=== PATIENT | female | born 1990 | race Caucasian/White ===

== ENCOUNTER → 2016-11-16 | Outpatient (CLI) | payer BC | LOC: BMCIMAGING 14:46 | PROVIDERS: ATTEND Family Medicine | DX: R11.2 Nausea with vomiting, unspecified (principal); R19.7 Diarrhea, unspecified; R10.9 Unspecified abdominal pain ==

== ENCOUNTER 2017-04-04 17:23 | Inpatient (IN) | payer MEDICAID ==
[2017-04-04] MEDS ORDERED: NS 1,000 ML IV ONE (17:36)
[2017-04-04 17:42] LABS: % IMMATURE GRANULYOCYTES 0.2 % (0.0-1.1); ABSOLUTE IMMATURE GRANULOCYTES 0.02 10^3/uL (0.00-0.10); ADD DIFF? NO; ADD MORPH? NO; ADD SCAN? NO; ATYPICAL LYMPHOCYTE FLAG 0 (0-99); FRAGMENT RBC FLAG 0 (0-99); HEMATOCRIT 37.7 % (38.0-47.0); HEMOGLOBIN 13.6 g/dL (12.6-16.3); LEFT SHIFT FLG 0 (0-99); LIPEMIA HEMOLYSIS FLAG 90 (0-99); MEAN CELL HEMOGLOBIN 34.3 pg (27.9-34.1); MEAN CELL HEMOGLOBIN CONCENTR. 36.1 g/dL (32.4-36.7); MEAN CELL VOLUME 95.2 fL (81.5-99.8); MEAN PLATELET VOLUME 9.4 fL (8.7-11.7); PLATELET CLUMPS FLAG 0 (0-99); PLATELET COUNT 240 10^3/uL (150-400); RED BLOOD CELL COUNT 3.96 10^6/uL (4.18-5.33); RED CELL DISTRIBUTION WIDTH 11.7 % (11.5-15.2)
--- NOTE | 2017-04-04 17:42 | EDPHY ---
H & P Stated Complaint: CI, not making sense Source: Patient, Police, EMS - Personal History LMP (Females 10-55): Unknown Current Tetanus/Diphtheria Vaccine: Unsure Current Tetanus Diphtheria and Acellular Pertussis (TDAP): Unsure - Medical/Surgical History Other PMH: Unable to assess pt, pt not participating in history, out of it HPI/ROS: HPI CHIEF COMPLAINT: Altered mental status, M1 hold HISTORY OF PRESENT ILLNESS: This patient is a 20-year-old female, who at this time is a Hortencia Santiago, she presents emergency room from [facility] after she was acting erratically and wandering around the up health system not making sense. Police were called. The make contact with the patient as well as EMS and she was not making sense she states that " She is in heaven" "her family is everywhere" Upon arrival here in emergency room she is noted to have normal vital signs. Review of systems and history is extremely limited due to this patient's altered mental status. Possible drug intoxication. She answers to every question random respinses. Past Medical History: Unknown Past Surgical History: Unknown Social History: Unknown Family History: Unknown ROS REVIEW OF SYSTEMS: Review systems extremely limited due the patient's mental status. Exam Constitutional triage nursing summary reviewed, vital signs reviewed, awake/ alert. Eyes normal conjunctivae and sclera, EOMI, PERRLA. HENT normal inspection, atraumatic, moist mucus membranes, no epistaxis, neck supple/ no meningismus, no raccoon eyes. Respiratory clear to auscultation bilaterally, normal breath sounds, no respiratory distress, no wheezing. Cardiovascular rate normal, regular rhythm, no murmur, no edema, distal pulses normal. Gastrointestinal soft, non-tender, no rebound, no guarding, normal bowel sounds, no distension, no pulsatile mass. Genitourinary no CVA tenderness. Musculoskeletal no midline vertebral tenderness, full range of motion, no calf swelling, no tenderness of extremities, no meningismus, good pulses, neurovascularly intact. Skin pink, warm, & dry, no rash, skin atraumatic. Neurologic moves everything appropriately, not alert and oriented, answers randomly to every question. Psychiatric normal mood/affect. Heme/Lymph/Immune no lymphadenopathy. Differential Diagnosis: Includes but is not limited to in a particular order acute drug intoxication, electrolyte disturbance, infection. Medical Decision Making: Plan for this patient IV establishment, blood draw, drug screen, alcohol level, CT of head due to altered mental status and confusion. Unclear baseline. Re-evaluation: EKG interpretation by me on record in [employer] system. Impression time of EKG 180, sinus rhythm rate of 71. Otherwise unremarkable EKG. CT scan of the head without IV contrast The results of the study are negative for acute abnormality. The study was read by Dr. Frank I viewed the images myself on the PACS system. 2148: Patient is still pending drug screen. M1 hold. Patient signed over to Dr. Leyva at 10:00 p.m. shift change. 2199: Re-evaluation at this: Patient is not speaking more coherently. However still appears altered. Drug screen pending. (Candelario Hui) Constitutional: Initial Vital Signs Temperature (C) 36.5 C 04/04/17 17:24 Heart Rate 87 04/04/17 17:24 Respiratory Rate 16 04/04/17 17:24 Blood Pressure 116/80 04/04/17 17:24 O2 Sat (%) 97 04/04/17 17:24 O2 Delivery Mode Room Air Allergies/Adverse Reactions: Unable to Assess Allergy (Unverified 04/04/17 17:28) Home Medications: Medication Instructions Recorded Unobtainable 04/04/17 Medical Decision Making ED Course/Re-evaluation: 6:00 a.m.- The patient continued to behave erratically during her time in the emergency room. She was peeing on the floor and seemed to be actively psychotic. She was given a dose of Zyprexa IM which allowed her to sleep. She will be signed out to the oncoming provider Dr. Capellan. She has been evaluated by psychiatry and we are awaiting placement for her. (Cora Leyva) I assumed care at 7:00 a.m.. The plan is to admit the patient to [address] [place] [address] this morning. (Leonora Capellan) - Data Points Laboratory Results: Laboratory Results 04/04/17 17:30 04/04/17 17:30 04/04/17 04/04/17 22:30 17:30 Urine Opiates Screen NEGATIVE (NEGATIVE) Urine Barbiturates NEGATIVE (NEGATIVE) Ur Phencyclidine Scrn NEGATIVE (NEGATIVE) Ur Amphetamine Screen NEGATIVE (NEGATIVE) U Benzodiazepines Scrn NEGATIVE (NEGATIVE) [place] < 0.2 mEq/L L mEq/L (0.6-1.2) Urine Cocaine Screen NEGATIVE (NEGATIVE) U Marijuana (THC) Screen NON-NEGATIVE H (NEGATIVE) Medications Given: Discontinued Medications Benztropine Mesylate (Cogentin) 1 mg PO EDNOW ONE Stop: 04/05/17 02:47 Last Admin: 04/05/17 04:11 Dose: Not Given Clonazepam (Klonopin) 0.5 mg PO EDNOW ONE Stop: 04/05/17 02:47 Last Admin: 04/05/17 04:11 Dose: Not Given Clozapine (Clozaril) 50 mg PO EDNOW ONE Stop: 04/05/17 02:48 Last Admin: 04/05/17 04:11 Dose: Not Given Sodium Chloride (Ns) 1,000 mls @ 0 mls/hr IV ONCE ONE; Wide Open PRN Reason: Protocol Stop: 04/04/17 17:37 Last Admin: 04/04/17 17:39 Dose: 1,000 mls Lamotrigine (Lamictal) 150 mg PO EDNOW ONE Stop: 04/05/17 02:47 Last Admin: 04/05/17 03:42 Dose: 150 mg [place] Carbonate (Eskalith Cr) 900 mg PO EDNOW ONE Stop: 04/05/17 02:48 Last Admin: 04/05/17 03:38 Dose: 900 mg Olanzapine (Zyprexa Im Injection) 10 mg IM EDNOW ONE Stop: 04/05/17 04:30 Last Admin: 04/05/17 04:30 Dose: 10 mg Departure - Departure Disposition: [facility] IP Clinical Impression: Acute psychosis Condition: Good Referrals: Patient,NotPresent [Unknown] - As per Instructions
[2017-04-04 17:58] LABS: ANION GAP 13 mEq/L (8-16); CALCIUM 9.8 mg/dL (8.5-10.4); CARBON DIOXIDE 20 mEq/l (22-31); CHLORIDE 109 mEq/L (97-110); CREATININE 0.6 mg/dL (0.6-1.0); ETHANOL SERUM < 10 mg/dL (0-10); GLOMERULAR FILTRATION RATE > 60; GLUCOSE 103 mg/dL (70-100); POTASSIUM 3.9 mEq/L (3.5-5.2); SALICYLATE < 1.0 mg/dL (2.0-20.0); SODIUM 142 mEq/L (134-144)
--- NOTE | 2017-04-04 18:03 | CPEKG ---
Heart Rate: 71 RR Interval: 845 P-R Interval: 140 QRSD Interval: 84 QT Interval: 396 QTC Interval: 431 P [place]: 53 QRS [place]: 75 T Wave [place]: 56 EKG Severity - NORMAL ECG - EKG Impression: SINUS RHYTHM Electronically Signed By: Candelario Hui 04-Apr-2017 21:53:49
[2017-04-05 01:41] LABS: LITHIUM < 0.2 mEq/L (0.6-1.2)
[2017-04-05] MEDS ORDERED: clonazePAM 0.5 MG TAB PO ONE (02:46)
[2017-04-05] MEDS ORDERED: BENZTROPINE MESYLATE 1 MG TAB PO ONE (02:46)
[2017-04-05] MEDS ORDERED: lamoTRIgine 100 MG TAB PO ONE (02:46)
[2017-04-05] MEDS ORDERED: cloZAPine 25 MG TAB PO ONE (02:47)
[2017-04-05] MEDS ORDERED: LITHIUM CARBONATE ER 450 MG TAB PO ONE (02:47)
[2017-04-05] MEDS ORDERED: OLANZapine 10 MG/2 ML VIAL IM ONE ×2 (04:23→04:29)
[2017-04-05] MEDS ORDERED: OLANZapine DISINTEGR 10 MG TAB PO PRN (14:33)
[2017-04-05] MEDS ORDERED: ACETAMINOPHEN 325 MG TAB PO PRN (14:33)
[2017-04-05] MEDS ORDERED: MAGNESIUM HYDROXIDE 30 ML UDCUP PO PRN (14:33)
[2017-04-05] MEDS ORDERED: MAG HYDROX/AL HYDROX/SIMETH 30 ML UDCUP PO PRN (14:33)
[2017-04-05] MEDS: MULTIVITAMINS 1 EACH TAB PO SCH (15:53)
[2017-04-05] MEDS: LORazepam 0.5 MG TAB PO PRN (15:58)
[2017-04-05] MEDS: NICOTINE POLACRILEX 2 MG GUM B PRN (17:32)
[2017-04-05] MEDS: clonazePAM 0.5 MG TAB PO SCH (21:51)
[2017-04-05] MEDS: cloZAPine 100 MG TAB PO SCH (21:52)
[2017-04-05] MEDS: lamoTRIgine 100 MG TAB PO SCH (21:52)
[2017-04-05] MEDS: BENZTROPINE MESYLATE 1 MG TAB PO SCH (21:54)
[2017-04-05] MEDS: LITHIUM CARBONATE ER 450 MG TAB PO SCH (21:55)
[2017-04-06] MEDS: LORazepam 0.5 MG TAB PO PRN ×3 (08:57→17:35)
[2017-04-06] MEDS: MULTIVITAMINS 1 EACH TAB PO SCH ×2 (13:52→13:55)
--- NOTE | 2017-04-06 14:45 | BCON ---
[f rep st] BEHAVIORAL HEALTH CONSULTATION INTERNAL MEDICINE CONSULTATION DATE OF CONSULTATION: 04/06/2017 REFERRING PHYSICIAN: Dr. Saleh REASON FOR REFERRAL: Medical clearance for inpatient behavioral health stay. HISTORY OF PRESENT ILLNESS: This patient was brought to the [facility] Emergency Department 2 days ago, having been found acting erratically on the [facility]. She appeared to be actively psychotic in the emergency department, and was a poor historian. She was treated with olanzapine, assessed by the mental health team, and admitted for further psychiatric care. She currently is without any acute complaints. PAST MEDICAL HISTORY: 1. Bipolar disorder. 2. She reports hyperthyroidism due to lithium. 3. She reports a deviated nasal septum. PAST SURGICAL HISTORY: She has had her wisdom teeth extracted, and she is unclear as to whether or not there was surgery for the nasal septum. MEDICATIONS: Prior to admission: 1. Clonazepam 0.5 mg p.o. q.h.s. 2. Clozapine 50 mg p.o. q.h.s. 3. Multivitamin q. day. 4. Docusate 200 mg p.o. b.i.d. 5. [place] 900 mg p.o. at q.h.s. 6. Benztropine 1 mg p.o. q.h.s. 7. Lamotrigine 200 mg p.o. q.h.s. ALLERGIES: There is no information regarding allergies. SOCIAL HISTORY: She has been living in an apartment with roommates. She also has had a boyfriend, though she is not sure she wants to continue to be with him. 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 She smokes occasional cigarettes, and is not interested in smoking cessation. FAMILY HISTORY: Noncontributory. REVIEW OF SYSTEMS: She reports that she has had weight loss in recent weeks. She says it is because of PTSD. She otherwise has no GI complaints, with no nausea, vomiting, constipation or diarrhea, though she does have a reduced appetite. She is not in pain. She has no cough or dyspnea. She has not had fevers or chills, or feel excessively hot or cold, though she feels that her metabolism is running high. She denies dysuria, and otherwise a 10-point review of systems is negative. PHYSICAL EXAM: VITALS: Blood pressure is 117/68, heart rate is 76, respiratory rate is 14, oxygen saturation is 99% on room air. Temperature is 36.3 degrees centigrade. Her weight is 59 kg, for a body mass index of 21.6. GENERAL: This is a well-nourished, well-developed woman, appears her chronologic age. Cooperative and in no acute distress. HEENT: Extraocular movements are intact. Pupils are equal, round, and reactive to light. Mucous membranes are moist. Dentition is in good condition. She has an uncrowded airway, Mallampati class 1. NECK: Supple. There is plus-minus mild symmetric thyromegaly. HEART: There is regular rate and rhythm with no murmurs, rubs, or gallops. LUNGS: Clear to auscultation bilaterally. ABDOMEN: Soft, nontender, nondistended with normoactive bowel sounds. EXTREMITIES: There is no cyanosis, clubbing, or edema. NEUROLOGIC: She is alert and cooperative. She appears somewhat guarded in her affect. Cranial nerves 2-12 are grossly intact. There is no focal weakness. Sensation is intact to light touch. Deep tendon reflexes are hyperactive bilaterally at the biceps, patellar, and Achilles tendons, and with each deep tendon reflex test she also shrugs her shoulders, which does not make sense neurophysiologically. She has a mild fine extension tremor. There is no pronator drift and no asterixis. Gait is within normal limits. LABORATORY STUDIES: Drawn in the emergency department. CBC revealed slight anemia with a hematocrit of 37.7. Her mean cellular hemoglobin was slightly high at 34.3. Otherwise, CBC was overall within normal limits. Serum chemistry revealed a slightly low carbon dioxide at 20, a slightly elevated glucose at 103, and otherwise renal function and electrolytes were within normal limits. Beta hCG was negative for . Toxicology screen in the serum was negative for salicylates, acetaminophen or ethyl alcohol. [place] level was undetectable. Urine toxicology screen was non-negative for marijuana and was otherwise negative for substances of abuse. ASSESSMENT AND RECOMMENDATIONS: 1. Mental health issues pending further evaluation and management per Psychiatry and the mental health team. 2. Weight loss, per her report. Advise observing for normal oral intake, as her psychiatric condition is stabilized. 3. Tremor, may be due to lithium but it is a nonspecific symptom. 4. Question of hyperreflexia. There was an unusual presentation and so is also nonspecific. 5. Reported history of hyperthyroidism on lithium, with plus-minus enlarged thyroid. I have added a TSH onto the labs that were drawn 2 days ago to rule out hyperthyroidism. I see no medical contraindications to this patient's continued stay on the inpatient behavioral health unit, or to any psychiatric medications or procedures. Thank you very much for including me in the care of this patient, and please do not hesitate to contact me or the hospitalist service should there be need for further medical evaluation. /[id number]/MODL MTDD
[2017-04-06] MEDS: NICOTINE POLACRILEX 2 MG GUM B PRN (18:10)
[2017-04-06] MEDS: cloZAPine 100 MG TAB PO SCH (19:56)
[2017-04-06] MEDS: clonazePAM 0.5 MG TAB PO SCH (19:56)
[2017-04-06] MEDS: BENZTROPINE MESYLATE 1 MG TAB PO SCH (19:56)
[2017-04-06] MEDS: lamoTRIgine 100 MG TAB PO SCH (19:56)
[2017-04-06] MEDS: LITHIUM CARBONATE ER 450 MG TAB PO SCH (19:57)
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
[2017-04-07] MEDS: MULTIVITAMINS 1 EACH TAB PO SCH (10:54)
[2017-04-07 12:01] LABS: T3 (TRIIODOTHYRONINE) TOTAL 1.3 ng/mL (0.970-1.690)
--- NOTE | 2017-04-07 12:20 | SOAPPROG ---
SOYENIFER Progress Note Assessment/Plan: Assessment: Plan: 04/07/17 12:00 DAY ' UPDATE/EXAM: Nursing reports pt not complying with meds, remains isolative, flattened, preoccupied internally/ on direct exam pt denies not taking meds but does state she won"t take Clozaril and is concerned about [place] affecting her thyroid gland; with limit-setting and persuasion pt agrees to trial of Latuda, will take Lamictal as ordered and [place] as ordered pending hearing the report of her TSH value; does preesent with residual psychotic elements inclding religiosity, internal preoccupation, flattened affective expression. ASSESSMENT/PLAN: residual psychotic acuity - improved status yesterday likely reult of medication effect from meds taken in ER [employer] as no psychoactive meds taken since admission o/t Klonopin/ will begin Latuda @ 40 mg qd, DC Clozaril, continue other meds as ordered; call to community psychiatrist Dr Love pending ; will consider requesting COM after sander Deng Objective: Vital Signs Temp Pulse Resp BP Pulse Ox 36.5 C 70 12 120/83 H 98 04/06/17 23:47 04/06/17 23:47 04/06/17 23:47 04/06/17 23:47 04/06/17 23:47 ICD10 Worksheet Patient Problems: Problems Problem Status Onset Acute psychosis Acute
[2017-04-07] MEDS: LURASIDONE HCL 40 MG TAB PO SCH (12:47)
[2017-04-07] MEDS: LORazepam 0.5 MG TAB PO PRN (15:21)
[2017-04-07] MEDS: clonazePAM 0.5 MG TAB PO SCH (20:31)
[2017-04-07] MEDS: BENZTROPINE MESYLATE 1 MG TAB PO SCH (20:31)
[2017-04-07] MEDS: lamoTRIgine 100 MG TAB PO SCH (21:20)
[2017-04-07] MEDS: cloZAPine 100 MG TAB PO SCH (21:28)
[2017-04-07] MEDS: LITHIUM CARBONATE ER 450 MG TAB PO SCH (21:28)
--- NOTE | 2017-04-08 06:25 | SOAPPROG ---
ALEX Progress Note Assessment/Plan: Assessment: Plan: 04/07/17 12:00 DAY ' UPDATE/EXAM: Nursing reports pt not complying with meds, remains isolative, flattened, preoccupied internally/ on direct exam pt denies not taking meds but does state she won't take Clozaril and is concerned about [place] affecting her thyroid gland; with limit-setting and persuasion pt agrees to trial of Latuda, will take Lamictal as ordered and [place] as ordered pending hearing the report of her TSH value; does present with residual psychotic elements including religiosity, internal preoccupation, flattened affective expression. ASSESSMENT/PLAN: residual psychotic acuity - improved status yesterday likely result of medication effect from meds taken in ER [employer] as no psychoactive meds taken since admission o/t Klonopin/ will begin Latuda @ 40 mg qd, DC Clozaril, continue other meds as ordered; call to community psychiatrist Dr Love pending ; will consider requesting COM after sander Deng 04/08/17 DAY UPDATE/EXAM; Objective: Vital Signs Temp Pulse Resp BP Pulse Ox 36.2 C 78 14 135/74 H 95 04/08/17 00:09 04/08/17 00:09 04/08/17 00:09 04/08/17 00:09 04/08/17 00:09 ICD10 Worksheet Patient Problems: Problems Problem Status Onset Acute psychosis Acute
[2017-04-08] MEDS ORDERED: LURASIDONE HCL 40 MG TAB PO SCH (08:00)
[2017-04-08] MEDS: MULTIVITAMINS 1 EACH TAB PO SCH (08:51)
[2017-04-08] MEDS: LURASIDONE HCL 40 MG TAB PO SCH ×2 (08:51→20:29)
[2017-04-08] MEDS: LORazepam 0.5 MG TAB PO PRN (12:50)
--- NOTE | 2017-04-08 13:41 | SOAPPROG ---
SOAP Progress Note Assessment/Plan: Assessment: Plan: 04/07/17 12:00 DAY ' UPDATE/EXAM: Nursing reports pt not complying with meds, remains isolative, flattened, preoccupied internally/ on direct exam pt denies not taking meds but does state she won't take Clozaril and is concerned about [place] affecting her thyroid gland; with limit-setting and persuasion pt agrees to trial of Latuda, will take Lamictal as ordered and [place] as ordered pending hearing the report of her TSH value; does present with residual psychotic elements including religiosity, internal preoccupation, flattened affective expression. 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 as no psychoactive meds taken since admission o/t Klonopin/ will begin Latuda @ 40 mg qd, DC Clozaril, continue other meds as ordered; call to community psychiatrist Dr Love pending ; will consider requesting COM after sander Deng 04/08/17 DAY 01/30' UPDATE/EXAM; Nursing reports pt complied with Latuda and Lamictal but refused [place]; observed to be in better organized thought process and c/w cares/ on direct exam is also better organized but still with prominent denial and distortion - minimizing her disturbance leading to admission; also displays residual grandiose and paranoid thinking; continues to make the case for DC to return to family in [place]; responsive to my coopting respectfully her plan but explaining concretely the extension of inpt course that's necessary to sufficiently stabilize her mental status as well as to complete workup and DC planning; she is accepting of this and is now allowing to s/w mother which will happen over coming weekend; we agree to currently use Latuda and [place] as standing medications INTAKE/ Dr. Love - he reports just having seen her twice after inheriting case from [place] when pt insurance changed to [employer] only after parents returned to live in [place] from [place]; he states she was stable for 9 + months on Clozaril, [place], and Lamictal leveraged by LTC and COM; given her stability he let the LTCand COM and soon thereafter she stopped taking meds and rapidly decompensated ASSESSMENT/PLAN: early phase recompensation/ will increase Latuda to 80 mg qd, maintain Lamictal at 200 mg qd, DC [place] for now; will request COM; CP focus will for and correct boundary blurring prn with pt's interactions with male patients Objective: Vital Signs Temp Pulse Resp BP Pulse Ox 36.2 C 78 14 135/74 H 95 04/08/17 00:09 04/08/17 00:09 04/08/17 00:09 04/08/17 00:09 04/08/17 00:09 ICD10 Worksheet Patient Problems: Problems Problem Status Onset Acute psychosis Acute
[2017-04-08] MEDS: clonazePAM 0.5 MG TAB PO SCH (20:29)
[2017-04-08] MEDS: cloZAPine 100 MG TAB PO SCH (20:29)
[2017-04-08] MEDS: lamoTRIgine 100 MG TAB PO SCH (20:29)
[2017-04-08] MEDS: BENZTROPINE MESYLATE 1 MG TAB PO SCH (20:29)
[2017-04-09] MEDS: MULTIVITAMINS 1 EACH TAB PO SCH ×2 (08:35→14:01)
[2017-04-09] MEDS: LURASIDONE HCL 40 MG TAB PO SCH ×2 (08:35→21:49)
--- NOTE | 2017-04-09 08:55 | SOAPPROG ---
SOAP Progress Note Assessment/Plan: Assessment: Plan: 04/07/17 12:00 DAY ' UPDATE/EXAM: Nursing reports pt not complying with meds, remains isolative, flattened, preoccupied internally/ on direct exam pt denies not taking meds but does state she won't take Clozaril and is concerned about [place] affecting her thyroid gland; with limit-setting and persuasion pt agrees to trial of Latuda, will take Lamictal as ordered and [place] as ordered pending hearing the report of her TSH value; does present with residual psychotic elements including religiosity, internal preoccupation, flattened affective expression. 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 psychoactive meds taken since admission o/t Klonopin/ will begin Latuda @ 40 mg qd, DC Clozaril, continue other meds as ordered; call to community psychiatrist Dr Love pending ; will consider requesting COM after sander Deng 04/08/17 DAY 01/30' UPDATE/EXAM; Nursing reports pt complied with Latuda and Lamictal but refused [place]; observed to be in better organized thought process and c/w cares/ on direct exam is also better organized but still with prominent denial and distortion - minimizing her disturbance leading to admission; also displays residual grandiose and paranoid thinking; continues to make the case for DC to return to family in [place]; responsive to my coopting respectfully her plan but explaining concretely the extension of inpt course that's necessary to sufficiently stabilize her mental status as well as to complete workup and DC planning; she is accepting of this and is now allowing me to s/w mother which will happen over coming weekend; we agree to currently use Latuda and Lamictal as standing medications INTAKE/ Dr. Love - he reports just having seen her twice after inheriting case from when pt insurance changed to [employer] only after parents returned to live in [place] from [place]; he states she was stable for 9 + months on Clozaril, [place], and Lamictal leveraged by LTC and COM; given her stability he let the LTC and COM lapse and soon thereafter she stopped taking meds and rapidly decompensated. ASSESSMENT/PLAN: early phase recompensation/ will increase Latuda to 80 mg qd, maintain Lamictal at 200 mg qd, DC [place] for now; will request COM; CP focus will for and correct boundary blurring prn with pt's interactions with male patients 04/09/17 DAY UPDATE/EXAM: Objective: Vital Signs Temp Pulse Resp BP Pulse Ox 36.2 C 78 14 135/74 H 95 04/08/17 00:09 04/08/17 00:09 04/08/17 00:09 04/08/17 00:04/08/17 00:09 ICD10 Worksheet Patient Problems: Problems Problem Status Onset Acute psychosis Acute
--- NOTE | 2017-04-09 10:58 | SOAPPROG ---
SOAP Progress Note Assessment/Plan: Assessment: Plan: 04/07/17 12:00 DAY ' UPDATE/EXAM: Nursing reports pt not complying with meds, remains isolative, flattened, preoccupied internally/ on direct exam pt denies not taking meds but does state she won't take Clozaril and is concerned about [place] affecting her thyroid gland; with limit-setting and persuasion pt agrees to trial of Latuda, will take Lamictal as ordered and [place] as ordered pending hearing the report of her TSH value; does present with residual psychotic elements including religiosity, internal preoccupation, flattened affective expression. 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 as no psychoactive meds taken since admission o/t Klonopin/ will begin Latuda @ 40 mg qd, DC Clozaril, continue other meds as ordered; call to community psychiatrist Dr Love pending ; will consider requesting COM after sander Deng 04/08/17 DAY 01/30' UPDATE/EXAM; Nursing reports pt complied with Latuda and Lamictal but refused [place]; observed to be in better organized thought process and c/w cares/ on direct exam is also better organized but still with prominent denial and distortion - minimizing her disturbance leading to admission; also displays residual grandiose and paranoid thinking; continues to make the case for DC to return to family in [place]; responsive to my coopting respectfully her plan but explaining concretely the extension of inpt course that's necessary to sufficiently stabilize her mental status as well as to complete workup and DC planning; she is accepting of this and is now allowing me to s/w mother which will happen over coming weekend; we agree to currently use Latuda and Lamictal as standing medications INTAKE/ Dr. Love - he reports just having seen her twice after inheriting case from when pt insurance changed to [employer] only after parents returned to live in [place] from [place]; he states she was stable for 9 + months on Clozaril, [place], and Lamictal leveraged by LTC and COM; given her stability he let the LTC and COM lapse and soon thereafter she stopped taking meds and rapidly decompensated. ASSESSMENT/PLAN: early phase recompensation/ will increase Latuda to 80 mg qd, maintain Lamictal at 200 mg qd, DC [place] for now; will request COM; CP focus will focus on and correct boundary blurring prn with pt's interactions with male patients 04/09/17 DAY ' UPDATE/EXAM: Nursing reports that pt found in male pt's bed fully clothed moments after ientering pt's room on second shift last pm; both pts cooperated with staff intervention and applied limits; she observed as restless, internally preoccupied, c/w cares and meds, attending groups selectively; on direct exam pt remains flattened and with PI, relates in guarded fashion, does appear to understand that need for better boundaries in her social relatedness; understands I will contact [facility] for intake and that direct meeting wiht her and mother will follow ASSESSMENT/PLAN: residual psychotic acuity; still driven to interact sexually in inappropriate fashion with fellow patients/ CP reviewed with Nursing in R[place], no change in current medications Objective: Vital Signs Temp Pulse Resp BP Pulse Ox 36.2 C 78 14 135/74 H 95 04/08/17 00:09 04/08/17 00:09 04/08/17 00:09 04/08/17 00:09 04/08/17 00:09 ICD10 Worksheet Patient Problems: Problems Problem Status Onset Acute psychosis Acute
--- NOTE | 2017-04-09 12:59 | SOAPPROG ---
SOAP Progress Note Assessment/Plan: Assessment: Plan: 04/07/17 12:00 DAY ' UPDATE/EXAM: Nursing reports pt not complying with meds, remains isolative, flattened, preoccupied internally/ on direct exam pt denies not taking meds but does state she won't take Clozaril and is concerned about [place] affecting her thyroid gland; with limit-setting and persuasion pt agrees to trial of Latuda, will take Lamictal as ordered and [place] as ordered pending hearing the report of her TSH value; does present with residual psychotic elements including religiosity, internal preoccupation, flattened affective expression. 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 as no psychoactive meds taken since admission o/t Klonopin/ will begin Latuda @ 40 mg qd, DC Clozaril, continue other meds as ordered; call to community psychiatrist Dr Love pending ; will consider requesting COM after sander Deng 04/08/17 DAY 01/30' UPDATE/EXAM; Nursing reports pt complied with Latuda and Lamictal but refused [place]; observed to be in better organized thought process and c/w cares/ on direct exam is also better organized but still with prominent denial and distortion - minimizing her disturbance leading to admission; also displays residual grandiose and paranoid thinking; continues to make the case for DC to return to family in [place]; responsive to my coopting respectfully her plan but explaining concretely the extension of inpt course that's necessary to sufficiently stabilize her mental status as well as to complete workup and DC planning; she is accepting of this and is now allowing me to s/w mother which will happen over coming weekend; we agree to currently use Latuda and Lamictal as standing medications INTAKE/ Dr. Love - he reports just having seen her twice after inheriting case from when pt insurance changed to [employer] only after parents returned to live in [place] from [place]; he states she was stable for 9 + months on Clozaril, [place], and Lamictal leveraged by LTC and COM; given her stability he let the LTC and COM lapse and soon thereafter she stopped taking meds and rapidly decompensated. ASSESSMENT/PLAN: early phase recompensation/ will increase Latuda to 80 mg qd, maintain Lamictal at 200 mg qd, DC [place] for now; will request COM; CP focus will focus on and correct boundary blurring prn with pt's interactions with male patients 04/09/17 DAY ' UPDATE/EXAM: Nursing reports that pt found in male pt's bed fully clothed moments after entering pt's room on second shift last pm; both pts cooperated with staff intervention and applied limits; she observed as restless, internally preoccupied, c/w cares and meds, attending groups selectively; on direct exam pt remains flattened and with PI, relates in guarded fashion, does appear to understand that need for better boundaries in her social relatedness; understands I will contact [facility] for intake and that direct meeting with her and mother will follow ASSESSMENT/PLAN: residual psychotic acuity; still driven to interact sexually in inappropriate fashion with fellow patients/ CP reviewed with Nursing in Rounds, no change in current medications 04/09/17 12:58 Objective: Vital Signs Temp Pulse Resp BP Pulse Ox 36.2 C 78 14 135/74 H 95 04/08/17 00:09 04/08/17 00:09 04/08/17 00:09 04/08/17 00:09 04/08/17 00:09 ICD10 Worksheet Patient Problems: Problems Problem Status Onset Acute psychosis Acute
[2017-04-09] MEDS: LORazepam 0.5 MG TAB PO PRN ×2 (17:27→20:49)
[2017-04-09] MEDS: lamoTRIgine 100 MG TAB PO SCH (21:49)
[2017-04-09] MEDS: clonazePAM 0.5 MG TAB PO SCH (21:49)
[2017-04-09] MEDS: cloZAPine 100 MG TAB PO SCH (21:49)
[2017-04-09] MEDS: BENZTROPINE MESYLATE 1 MG TAB PO SCH (21:49)
[2017-04-10] MEDS: LURASIDONE HCL 40 MG TAB PO SCH ×2 (07:46→21:46)
[2017-04-10] MEDS: MULTIVITAMINS 1 EACH TAB PO SCH (08:36)
--- NOTE | 2017-04-10 15:16 | SOAPPROG ---
SOAP Progress Note Assessment/Plan: Assessment: Plan: 04/07/17 12:00 DAY ' UPDATE/EXAM: Nursing reports pt not complying with meds, remains isolative, flattened, preoccupied internally/ on direct exam pt denies not taking meds but does state she won't take Clozaril and is concerned about [place] affecting her thyroid gland; with limit-setting and persuasion pt agrees to trial of Latuda, will take Lamictal as ordered and [place] as ordered pending hearing the report of her TSH value; does present with residual psychotic elements including religiosity, internal preoccupation, flattened affective expression. 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 as no psychoactive meds taken since admission o/t Klonopin/ will begin Latuda @ 40 mg qd, DC Clozaril, continue other meds as ordered; call to community psychiatrist Dr Love pending ; will consider requesting COM after sander Degn 04/08/17 DAY 01/30' UPDATE/EXAM; Nursing reports pt complied with Latuda and Lamictal but refused [place]; observed to be in better organized thought process and c/w cares/ on direct exam is also better organized but still with prominent denial and distortion - minimizing her disturbance leading to admission; also displays residual grandiose and paranoid thinking; continues to make the case for DC to return to family in [place]; responsive to my coopting respectfully her plan but explaining concretely the extension of inpt course that's necessary to sufficiently stabilize her mental status as well as to complete workup and DC planning; she is accepting of this and is now allowing me to s/w mother which will happen over coming weekend; we agree to currently use Latuda and Lamictal as standing medications INTAKE/ Dr. Love - he reports just having seen her twice after inheriting case from when pt insurance changed to [employer] only after parents returned to live in [place] from [place]; he states she was stable for 9 + months on Clozaril, [place], and Lamictal leveraged by LTC and COM; given her stability he let the LTC and COM lapse and soon thereafter she stopped taking meds and rapidly decompensated. ASSESSMENT/PLAN: early phase recompensation/ will increase Latuda to 80 mg qd, maintain Lamictal at 200 mg qd, DC [place] for now; will request COM; CP focus will focus on and correct boundary blurring prn with pt's interactions with male patients 04/09/17 DAY UPDATE/EXAM: Nursing reports that pt found in male pt's bed fully clothed moments after entering pt's room on second shift last pm; both pts cooperated with staff intervention and applied limits; she observed as restless, internally preoccupied, c/w cares and meds, attending groups selectively; on direct exam pt remains flattened and with PI, relates in guarded fashion, does appear to understand that need for better boundaries in her social relatedness; understands I will contact [facility] for intake and that direct meeting with her and mother will follow ASSESSMENT/PLAN: residual psychotic acuity; still driven to interact sexually in inappropriate fashion with fellow patients/ CP reviewed with Nursing in R[place], no change in current medications 04/10/17 15:09 DAY UPDATE/EXAM: Nursing reports pt has remained in behavioral control since limits set yesterday, c/w cares and meds, continued presence in milieu and groups/ on direct exam met with patient and mother; syndromal update, reasons for extending inpt rx discussed; pt and mother congruent in sustaining interest in move to [place] and return to family home at time of DC; pt understands that I will be calling Dr. Oro at who followed for the more extended time on the COM prior to her recent transfer to [facility]; inappropriate anger toward mother noted and guardedness in relating to me also present ASSESSMENT/PLAN: paced recompensation with residual psychosis evident/ no change in meds and management; anticipate filing for COM tomorrow. 04/11/17 DAY UPDATE/EXAM: Objective: Vital Signs Temp Pulse Resp BP Pulse Ox 36.2 C 78 14 135/74 H 95 04/08/17 00:09 04/08/17 00:09 04/08/17 00:09 04/08/17 00:04/08/17 00:09 ICD10 Worksheet Patient Problems: Problems Problem Status Onset Acute psychosis Acute
[2017-04-10] MEDS: LORazepam 0.5 MG TAB PO PRN (16:41)
[2017-04-10] MEDS: clonazePAM 0.5 MG TAB PO SCH (21:44)
[2017-04-10] MEDS: cloZAPine 100 MG TAB PO SCH (21:45)
[2017-04-10] MEDS: BENZTROPINE MESYLATE 1 MG TAB PO SCH (21:46)
[2017-04-10] MEDS: lamoTRIgine 100 MG TAB PO SCH (21:46)
--- NOTE | 2017-04-11 08:37 | SOAPPROG ---
SOAP Progress Note Assessment/Plan: Assessment: Plan: 04/07/17 12:00 DAY ' UPDATE/EXAM: Nursing reports pt not complying with meds, remains isolative, flattened, preoccupied internally/ on direct exam pt denies not taking meds but does state she won't take Clozaril and is concerned about [place] affecting her thyroid gland; with limit-setting and persuasion pt agrees to trial of Latuda, will take Lamictal as ordered and [place] as ordered pending hearing the report of her TSH value; does present with residual psychotic elements including religiosity, internal preoccupation, flattened affective expression. 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 taken since admission o/t Klonopin/ will begin Latuda @ 40 mg qd, DC Clozaril, continue other meds as ordered; call to community psychiatrist Dr Love pending ; will consider requesting COM after sander Deng 04/08/17 DAY 01/30' UPDATE/EXAM; Nursing reports pt complied with Latuda and Lamictal but refused [place]; observed to be in better organized thought process and c/w cares/ on direct exam is also better organized but still with prominent denial and distortion - minimizing her disturbance leading to admission; also displays residual grandiose and paranoid thinking; continues to make the case for DC to return to family in [place]; responsive to my coopting respectfully her plan but explaining concretely the extension of inpt course that's necessary to sufficiently stabilize her mental status as well as to complete workup and DC planning; she is accepting of this and is now allowing me to s/w mother which will happen over coming weekend; we agree to currently use Latuda and Lamictal as standing medications INTAKE/ Dr. Love - he reports just having seen her twice after inheriting case from when pt insurance changed to [place] only after parents returned to live in [place] from [place]; he states she was stable for 9 + months on Clozaril, [place], and Lamictal leveraged by LTC and COM; given her stability he let the LTC and COM lapse and soon thereafter she stopped taking meds and rapidly decompensated. ASSESSMENT/PLAN: early phase recompensation/ will increase Latuda to 80 mg qd, maintain Lamictal at 200 mg qd, DC [place] for now; will request COM; CP focus will focus on and correct boundary blurring prn with pt's interactions with male patients 04/09/17 DAY UPDATE/EXAM: Nursing reports that pt found in male pt's bed fully clothed moments after entering pt's room on second shift last pm; both pts cooperated with staff intervention and applied limits; she observed as restless, internally preoccupied, c/w cares and meds, attending groups selectively; on direct exam pt remains flattened and with PI, relates in guarded fashion, does appear to understand that need for better boundaries in her social relatedness; understands I will contact [facility] for intake and that direct meeting with her and mother will follow ASSESSMENT/PLAN: residual psychotic acuity; still driven to interact sexually in inappropriate fashion with fellow patients/ CP reviewed with Nursing in R[place], no change in current medications 04/10/17 15:09 DAY UPDATE/EXAM: Nursing reports pt has remained in behavioral control since limits set yesterday, c/w cares and meds, continued presence in milieu and groups/ on direct exam met with patient and mother; syndromal update, reasons for extending inpt rx discussed; pt and mother congruent in sustaining interest in move to [place] and return to family home at time of DC; pt understands that I will be calling Dr. Oro at who followed for the more extended time on the COM prior to her recent transfer to [facility]; inappropriate anger toward mother noted and guardedness in relating to me also present ASSESSMENT/PLAN: paced recompensation with residual psychosis evident/ no change in meds and management; anticipate filing for COM tomorrow. 04/11/17 DAY UPDATE/EXAM: 04/11/17 DAY UPDDATE/EXAM: Objective: Vital Signs Temp Pulse Resp BP Pulse Ox 35.8 C L 98 12 111/77 97 04/11/17 06:22 04/11/17 06:22 04/11/17 06:22 04/11/17 06:22 04/11/17 06:22 ICD10 Worksheet Patient Problems: Problems Problem Status Onset Acute psychosis Acute
[2017-04-11] MEDS: LURASIDONE HCL 40 MG TAB PO SCH ×2 (09:29→22:10)
[2017-04-11] MEDS: MULTIVITAMINS 1 EACH TAB PO SCH (10:19)
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
[2017-04-11] MEDS: LITHIUM CARBONATE ER 300 MG TAB PO SCH ×2 (14:09→22:09)
[2017-04-11] MEDS: LORazepam 0.5 MG TAB PO PRN (14:09)
[2017-04-11] MEDS: cloZAPine 100 MG TAB PO SCH (22:09)
[2017-04-11] MEDS: lamoTRIgine 100 MG TAB PO SCH (22:09)
[2017-04-11] MEDS: BENZTROPINE MESYLATE 1 MG TAB PO SCH (22:10)
[2017-04-11] MEDS: clonazePAM 0.5 MG TAB PO SCH (22:11)
[2017-04-12] MEDS: LITHIUM CARBONATE ER 300 MG TAB PO SCH ×2 (08:41→21:10)
[2017-04-12] MEDS: LURASIDONE HCL 40 MG TAB PO SCH ×2 (08:41→21:10)
[2017-04-12] MEDS: MULTIVITAMINS 1 EACH TAB PO SCH (09:05)
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
[2017-04-12] MEDS: BENZTROPINE MESYLATE 1 MG TAB PO SCH (21:10)
[2017-04-12] MEDS: lamoTRIgine 100 MG TAB PO SCH (21:10)
[2017-04-12] MEDS: cloZAPine 100 MG TAB PO SCH (21:10)
[2017-04-12] MEDS: clonazePAM 0.5 MG TAB PO SCH (21:10)
[2017-04-13] MEDS: LURASIDONE HCL 40 MG TAB PO SCH (08:34)
[2017-04-13] MEDS: LITHIUM CARBONATE ER 300 MG TAB PO SCH ×2 (08:34→21:52)
[2017-04-13] MEDS: MULTIVITAMINS 1 EACH TAB PO SCH (08:59)
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
[2017-04-13] MEDS: BENZTROPINE MESYLATE 1 MG TAB PO SCH (21:51)
[2017-04-13] MEDS: cloZAPine 100 MG TAB PO SCH (21:51)
[2017-04-13] MEDS: clonazePAM 0.5 MG TAB PO SCH (21:51)
[2017-04-13] MEDS: lamoTRIgine 100 MG TAB PO SCH (21:52)
[2017-04-13] MEDS: LORazepam 0.5 MG TAB PO PRN (22:21)
[2017-04-14] MEDS: LURASIDONE HCL 40 MG TAB PO SCH (08:56)
[2017-04-14] MEDS: MULTIVITAMINS 1 EACH TAB PO SCH (09:02)
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
[2017-04-14] MEDS: LORazepam 0.5 MG TAB PO PRN (20:44)
[2017-04-14] MEDS ORDERED: cloZAPine 100 MG TAB PO SCH (21:00)
[2017-04-14] MEDS: lamoTRIgine 100 MG TAB PO SCH (21:40)
[2017-04-14] MEDS: cloZAPine 25 MG TAB PO SCH (21:40)
[2017-04-14] MEDS: clonazePAM 0.5 MG TAB PO SCH (21:40)
[2017-04-14] MEDS: LITHIUM CARBONATE ER 300 MG TAB PO SCH (21:40)
[2017-04-14] MEDS: BENZTROPINE MESYLATE 1 MG TAB PO SCH (21:40)
[2017-04-15] MEDS: LURASIDONE HCL 40 MG TAB PO SCH (08:20)
[2017-04-15] MEDS: NICOTINE POLACRILEX 2 MG GUM B PRN (08:21)
[2017-04-15 09:32] LABS: LITHIUM 0.8 mEq/L (0.6-1.2)
[2017-04-15] MEDS: MULTIVITAMINS 1 EACH TAB PO SCH (10:36)
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
[2017-04-15] MEDS: DOCUSATE SODIUM 100 MG CAP PO SCH ×2 (15:55→21:58)
[2017-04-15] MEDS: cloZAPine 25 MG TAB PO SCH (21:57)
[2017-04-15] MEDS: clonazePAM 0.5 MG TAB PO SCH (21:58)
[2017-04-15] MEDS: BENZTROPINE MESYLATE 1 MG TAB PO SCH (21:58)
[2017-04-15] MEDS: LITHIUM CARBONATE ER 300 MG TAB PO SCH (21:58)
[2017-04-15] MEDS: lamoTRIgine 100 MG TAB PO SCH (21:58)
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
[2017-04-16] MEDS: LURASIDONE HCL 40 MG TAB PO SCH (08:48)
[2017-04-16] MEDS: DOCUSATE SODIUM 100 MG CAP PO SCH ×2 (08:48→22:08)
[2017-04-16] MEDS: MULTIVITAMINS 1 EACH TAB PO SCH (08:49)
--- NOTE | 2017-04-16 15:51 | SOAPPROG ---
SOAP Progress Note Assessment/Plan: Assessment: Plan: 04/16/17 15:51 MD has reviewed chart and previous notes from Dr. Saleh who spoke with both Dr. Henry Love at [facility] who has provided care most recently for patient and Dr. Oro at [facility] who treated patient for longer period of time in past. Dr. Oro indicated patient had done well on Clozaril 100mg in past, though patient stated to Dr. Saleh that she never liked taking this medication and didn't want to be on it. Dr. Love says patient was sable for about 9 mos on Clozaril, [place] and Lamictal. However, prior to this admission, patient had been off her meds for unknown period of time. There are several reasons to be concerned about prescribing Clozaril for this patient. For one, she is unreliable. She was using THC and abusing benzos in past while taking psychiatric medications. She has long h/o court ordered treatment and was on LTC while at [facility]. It's generally not a good idea to use Clozaril if there are questions about patient's ability to follow through with treatment, their willingness to take medication and their reliability in getting lab draws as required for Clozaril. This patient has already indicated to Dr. Saleh that she is only taking meds so she can be discharged back to [place] with her MOC and has indicated her ambivalence, if not resistance, to taking these meds as outpatient. Given her attitude toward this regimen, this MD would suggest a combination with less risk of SE's, drug interactions and potential harm. [place] and Clozaril both require close monitoring and supervision to prevent unwanted adverse consequences. If patient is in stable location under court order or LTC where she demonstrates ability to follow through with treatment and monitoring, then it might be worth considering prescribing these 2 medications. However, since patient does not currently meet these criteria, would suggest regimen that is more suitable to her current situation and re- evaluate once she is under care of provider where she intends to reside, ie [place]. Have explained the risks of this treatment versus the benefits and rationale for different course of treatment, but patient says she would prefer to continue with her current meds and d/c as soon as possible to return to [place]. Recommend meeting with MOC, patient and resident care associate this or Tuesday to discuss d/c possibly early next week (Tuesday or Tuesday) if MOC is comfortable with patient leaving hospital and returning with her to [place]. 1. Will order CBC qweekly starting tomorrow 2. Last CBC on 04/04/17 ANC was WNL 04/16/17 15:54 04/16/17 16:04 Subjective: Met with patient, reviewed chart and discussed with staff. Patient presents with flat affect, pleasant, cooperative. She says she is feeling "pretty good so far" and reports that her meds are "calming my anxiety." She claims that when she is taking her meds, she is "more organized" and able to process information "better" and think more "clearly." Patient denies any AH/VH, SI/HI. Chart indicates sexually inappropriate behavior earlier in week, but staff deny such behavior currently. Patient says she is feeling "ready to leave" and return to [place] with her MOC. MD said it will be important to have concrete aftercare plan in place prior to d/c, that includes f/u appts in [place]. MD requested permission for resident care associate to talk to patient's MOC to discuss transportation and address any concerns MOC has about patient returning to [place] with her. Patient agreed for hospital staff to discuss arrangements with her MOC. Objective: Vital Signs Temp Pulse Resp BP Pulse Ox 36.7 C 105 H 14 114/64 98 04/16/17 06:00 04/16/17 06:00 04/16/17 06:00 04/16/17 06:00 04/16/17 06:00 MSE: Pleasant, cooperative, appropriate. Affect: flat Mood: "Pretty good" TP: linear TC: denies AH/VH, SI/HI Insight/Judgment: Poor/Poor - Pending Discharge Pending Discharge Within 24 Hours: No Pending Discharge Date: 04/19/17 (conference services coordinator to contact MOC to discuss return to [place] and aftercare plan; recommend f/u with Psych MD immediately upon return to [place], possibly also [facility] group) ICD10 Worksheet Patient Problems: Problems Problem Status Onset Cannabis use disorder, severe, in controlled environment, dependence Acute Schizoaffective disorder, bipolar type Acute - ICD10 Problem Qualifiers (1) Acute psychosis (2) Schizoaffective disorder, bipolar type (3) Cannabis use disorder, severe, in controlled environment, dependence
[2017-04-16] MEDS: LORazepam 0.5 MG TAB PO PRN (18:35)
[2017-04-16] MEDS: cloZAPine 25 MG TAB PO SCH (22:07)
[2017-04-16] MEDS: LITHIUM CARBONATE ER 300 MG TAB PO SCH (22:07)
[2017-04-16] MEDS: lamoTRIgine 100 MG TAB PO SCH (22:07)
[2017-04-16] MEDS: clonazePAM 0.5 MG TAB PO SCH (22:08)
[2017-04-16] MEDS: BENZTROPINE MESYLATE 1 MG TAB PO SCH (22:08)
[2017-04-17 07:59] LABS: % IMMATURE GRANULYOCYTES 0.3 % (0.0-1.1); ABSOLUTE IMMATURE GRANULOCYTES 0.02 10^3/uL (0.00-0.10); ADD DIFF? NO; ADD MORPH? NO; ADD SCAN? NO; ATYPICAL LYMPHOCYTE FLAG 0 (0-99); FRAGMENT RBC FLAG 0 (0-99); HEMATOCRIT 37.2 % (38.0-47.0); HEMOGLOBIN 13.2 g/dL (12.6-16.3); LEFT SHIFT FLG 0 (0-99); LIPEMIA HEMOLYSIS FLAG 90 (0-99); MEAN CELL HEMOGLOBIN 34.2 pg (27.9-34.1); MEAN CELL HEMOGLOBIN CONCENTR. 35.5 g/dL (32.4-36.7); MEAN CELL VOLUME 96.4 fL (81.5-99.8); MEAN PLATELET VOLUME 9.6 fL (8.7-11.7); PLATELET CLUMPS FLAG 0 (0-99); PLATELET COUNT 218 10^3/uL (150-400); RED BLOOD CELL COUNT 3.86 10^6/uL (4.18-5.33); RED CELL DISTRIBUTION WIDTH 11.9 % (11.5-15.2)
[2017-04-17] MEDS: DOCUSATE SODIUM 100 MG CAP PO SCH ×2 (09:44→21:30)
[2017-04-17] MEDS: LURASIDONE HCL 40 MG TAB PO SCH (09:44)
[2017-04-17] MEDS: MULTIVITAMINS 1 EACH TAB PO SCH (09:46)
--- NOTE | 2017-04-17 16:57 | SOAPPROG ---
SOAP Progress Note Assessment/Plan: Assessment: Plan: 04/16/17 15:51 MD has reviewed chart and previous notes from Dr. Saleh who spoke with both Dr. Henry Love at [facility] who has provided care most recently for patient and Dr. Oro at [facility] who treated patient for longer period of time in past. Dr. Oro indicated patient had done well on Clozaril 100mg in past, though patient stated to Dr. Saleh that she never liked taking this medication and didn't want to be on it. Dr. Love says patient was sable for about 9 mos on Clozaril, [place] and Lamictal. However, prior to this admission, patient had been off her meds for unknown period of time. There are several reasons to be concerned about prescribing Clozaril for this patient. For one, she is unreliable. She was using THC and abusing benzos in past while taking psychiatric medications. She has long h/o court ordered treatment and was on LTC while at [facility]. It's generally not a good idea to use Clozaril if there are questions about patient's ability to follow through with treatment, their willingness to take medication and their reliability in getting lab draws as required for Clozaril. This patient has already indicated to Dr. Saleh that she is only taking meds so she can be discharged back to [place] with her MOC and has indicated her ambivalence, if not resistance, to taking these meds as outpatient. Given her attitude toward this regimen, this MD would suggest a combination with less risk of SE's, drug interactions and potential harm. [place] and Clozaril both require close monitoring and supervision to prevent unwanted adverse consequences. If patient is in stable location under court order or LTC where she demonstrates ability to follow through with treatment and monitoring, then it might be worth considering prescribing these 2 medications. However, since patient does not currently meet these criteria, would suggest regimen that is more suitable to her current situation and re- evaluate once she is under care of provider where she intends to reside, ie [place]. Have explained the risks of this treatment versus the benefits and rationale for different course of treatment, but patient says she would prefer to continue with her current meds and d/c as soon as possible to return to [place]. Recommend meeting with MOC, patient and child care group leader this or Tuesday to discuss d/c possibly early next week (Tuesday or Tuesday) if MOC is comfortable with patient leaving hospital and returning with her to [place]. 1. Will order CBC qweekly starting tomorrow 2. Last CBC on 04/04/17 ANC was WNL 04/16/17 15:54 04/17/17 16:52 Plan: 1. CBC on 04/17/17 showed drop in ANC from 6.07 to 3.04 since 04/04/17. Given previously mentioned concerns about treating this patient with Clozaril, strongly encourage monitoring of her CBC while taking this medication. Even though ANC is WNL, there has been significant decrease since medication was resumed at time of admission. Recommend patient f/u promptly with provider once she returns to [place] and continue to have blood work monitored while on Clozaril. 2. spoke briefly to patient's MOC during visiting time. MOC denies any concerns about patient's safety if she were to discharge from hospital. MO is willing to drive with patient back to [place] and doesn't foresee any problems with patient maintaining compliance during the trip home. Patient has agreed to take her medications and f/u with therapist and psychiatrist immediately upon returning to [place]. 3. Likely to d/c patient tomorrow. MOC will pick her up. Subjective: Patient presents pleasant, calm, cooperative. She denies any mood related problems, no sleep difficulties and shows no signs of pressured speech, racing thoughts or hyperactivity. patient says her mood is "really good." She denies any AH/VH, SI/HI. She would like to discharge tomorrow and drive back to [place] with her MOC. Patient says her MOC has already made appointments for her with providers in [place]. Objective: Vital Signs Temp Pulse Resp BP Pulse Ox 36.5 C 74 12 126/78 H 96 04/17/17 06:00 04/17/17 06:00 04/17/17 06:00 04/17/17 06:00 04/17/17 06:00 Laboratory Results 04/17/17 06:30 MSE: Pleasant, cooperative, calmer. Affect: Bright, cheerful Mood: "Good" TP: Linear, goal-directed TC: Denies any AH/VH, SI/HI Insight/Judgment: Fair/Fair - Time Spent With Patient Time Spent With Patient: 25" - Pending Discharge Pending Discharge Within 24 Hours: Yes Pending Discharge Date: 04/18/17 Pending Discharge Time: 12:00 ICD10 Worksheet Patient Problems: Problems Problem Status Onset Cannabis use disorder, severe, in controlled environment, dependence Acute Schizoaffective disorder, bipolar type Acute - ICD10 Problem Qualifiers (1) Acute psychosis (2) Schizoaffective disorder, bipolar type (3) Cannabis use disorder, severe, in controlled environment, dependence
[2017-04-17] MEDS: cloZAPine 25 MG TAB PO SCH (21:30)
[2017-04-17] MEDS: lamoTRIgine 100 MG TAB PO SCH (21:30)
[2017-04-17] MEDS: BENZTROPINE MESYLATE 1 MG TAB PO SCH (21:30)
[2017-04-17] MEDS: LITHIUM CARBONATE ER 300 MG TAB PO SCH (21:31)
[2017-04-17] MEDS: clonazePAM 0.5 MG TAB PO SCH (21:31)
[2017-04-18 06:15] VITALS: BP 118/54; PULSE 77; RESP 14; TEMP 98.2; O2SAT 98
[2017-04-18] MEDS: LURASIDONE HCL 40 MG TAB PO SCH (07:59)
[2017-04-18] MEDS: DOCUSATE SODIUM 100 MG CAP PO SCH (11:54)
[2017-04-18] MEDS: MULTIVITAMINS 1 EACH TAB PO SCH (11:55)
--- NOTE | 2017-04-18 11:58 | SOAPPROG ---
SOAP Progress Note Assessment/Plan: Assessment: Plan: 04/16/17 15:51 MD has reviewed chart and previous notes from Dr. Saleh who spoke with both Dr. Henry Love at [facility] who has provided care most recently for patient and Dr. Oro at [facility] who treated patient for longer period of time in past. Dr. Oro indicated patient had done well on Clozaril 100mg in past, though patient stated to Dr. Saleh that she never liked taking this medication and didn't want to be on it. Dr. Love says patient was sable for about 9 mos on Clozaril, [place] and Lamictal. However, prior to this admission, patient had been off her meds for unknown period of time. There are several reasons to be concerned about prescribing Clozaril for this patient. For one, she is unreliable. She was using THC and abusing benzos in past while taking psychiatric medications. She has long h/o court ordered treatment and was on LTC while at [facility]. It's generally not a good idea to use Clozaril if there are questions about patient's ability to follow through with treatment, their willingness to take medication and their reliability in getting lab draws as required for Clozaril. This patient has already indicated to Dr. Saleh that she is only taking meds so she can be discharged back to [place] with her MOC and has indicated her ambivalence, if not resistance, to taking these meds as outpatient. Given her attitude toward this regimen, this MD would suggest a combination with less risk of SE's, drug interactions and potential harm. [place] and Clozaril both require close monitoring and supervision to prevent unwanted adverse consequences. If patient is in stable location under court order or LTC where she demonstrates ability to follow through with treatment and monitoring, then it might be worth considering prescribing these 2 medications. However, since patient does not currently meet these criteria, would suggest regimen that is more suitable to her current situation and re- evaluate once she is under care of provider where she intends to reside, ie [place]. Have explained the risks of this treatment versus the benefits and rationale for different course of treatment, but patient says she would prefer to continue with her current meds and d/c as soon as possible to return to [place]. Recommend meeting with MOC, patient and lawn caretaker this or Tuesday to discuss d/c possibly early next week (Tuesday or Tuesday) if [facility] is comfortable with patient leaving hospital and returning with her to [place]. 1. Will order CBC qweekly starting tomorrow 2. Last CBC on 04/04/17 ANC was WNL 04/16/17 15:54 04/17/17 16:52 Plan: 1. CBC on 04/17/17 showed drop in ANC from 6.07 to 3.04 since 04/04/17. Given previously mentioned concerns about treating this patient with Clozaril, strongly encourage monitoring of her CBC while taking this medication. Even though ANC is WNL, there has been significant decrease since medication was resumed at time of admission. Recommend patient f/u promptly with provider once she returns to [place] and continue to have blood work monitored while on Clozaril. 2. MD spoke briefly to patient's MOC during visiting time. MO denies any concerns about patient's safety if she were to discharge from hospital. [facility] is willing to drive with patient back to [place] and doesn't foresee any problems with patient maintaining compliance during the trip home. Patient has agreed to take her medications and f/u with therapist and psychiatrist immediately upon returning to [place]. 3. Likely to d/c patient tomorrow. [facility] will pick her up. 04/18/17 11:54 Plan: 1. D/C today with [facility]. Plan is to drive back to [place] tomorrow. 2. Patient has f/u appts on 04/20/17 with psych MD and 04/23/17 with therapist. Subjective: Met with patient and discussed with staff. Patient is in her room packing her belongings. She is enthusiastic about her pending d/c today. She is in "good" mood and denies any symptoms of depression, anxiety or psychosis. She denies any thoughts, plan or intent to harm herself. has made f/u appts for patient in [place] after she returns. Objective: Vital Signs Temp Pulse Resp BP Pulse Ox 36.8 C 77 14 118/54 L 98 04/18/17 06:00 04/18/17 06:00 04/18/17 06:00 04/18/17 06:00 04/18/17 06:00 Laboratory Results 04/17/17 06:30 MSE: Pleasant, cooperative, eager for d/c. Affect: Broad, smiling Mood: "Good " TP: Linear, goal-directed TC: Denies any AH/VH, paranoia and SI/HI. Insight/ Judgment: Fair - Time Spent With Patient Time Spent With Patient: 15" - Pending Discharge Pending Discharge Within 24 Hours: Yes Pending Discharge Date: 04/18/17 Pending Discharge Time: 13:00 ICD10 Worksheet Patient Problems: Problems Problem Status Onset Cannabis use disorder, severe, in controlled environment, dependence Acute Schizoaffective disorder, bipolar type Acute - ICD10 Problem Qualifiers (1) Schizoaffective disorder, bipolar type (2) Cannabis use disorder, severe, in controlled environment, dependence
== END 2017-04-18 13:10 | disposition home or self-care (01) | DRG 885 ==
LOC: EDBD 17:23 → MERGE 04-05 13:05 → BBEH 04-05 13:05
PROVIDERS: ADMIT Psychiatry & Neurology Psychiatry; ATTEND Psychiatry & Neurology Psychiatry
DX: F25.9 Schizoaffective disorder, unspecified (principal); F12.90 Cannabis use, unspecified, uncomplicated; F13.90 Sedative, hypnotic, or anxiolytic use, unspecified, uncomplicated; E03.9 Hypothyroidism, unspecified; Z72.89 Other problems related to lifestyle
CPT/HCPCS: 80305; 84445-90; 84480-90; 84481-90; G0480